=== PATIENT | female | born 1960 | race Caucasian/White ===

== ENCOUNTER 2021-05-24 04:47 | Emergency (ER) | payer SELFPAY ==
--- NOTE | ~2021-05-24 | XR_ITS ---
EXAMINATION: XR chest 1V portable DATE: 05/24/2021 06:49 INDICATION: Cough. Shortness of breath. TECHNIQUE: A single frontal view of the chest was obtained. COMPARISON: None. FINDINGS: Sensitivity is decreased by obesity. There is mild atelectasis in right lower lung zone. No pleural effusion or pneumothorax. The heart size is normal. IMPRESSION: 1. Mild atelectasis in right lower lung zone. Reviewed, dictated and finalized at location A.
--- NOTE | ~2021-05-24 | CT_ITS ---
EXAMINATION: CT soft tissue neck w con DATE: 05/24/2021 07:13 INDICATION: Throat obstruction. TECHNIQUE: Computed tomography (CT) of the neck was performed with 75 mL Omnipaque-350 intravenous co ntrast. Automated exposure control and iterative reconstruction technique were employed. The dose-renato gth product was 869.82 mGy-cm. COMPARISON: None FINDINGS: There are nodules in the thyroid measuring up to 11 mm, likely not clinically significant. There are no pathologically enlarged lymph nodes. There is plaque in the proximal internal carotid ar teries with 0% stenosis on the right and 50% stenosis on the left relative to normal distal artery ramesh men diameter. There is severe cervical spondylosis. IMPRESSION: 1. No etiology for the patient's symptoms. Reviewed, dictated and finalized at location A.
[2021-05-24 04:57] VITALS: BP 164/99; PULSE 80; RESP 18; TEMP 36.6; O2SAT 98
--- NOTE | 2021-05-24 04:59 | PC.NURSE ---
pt repeatedly refusing to wear her mask. pt educated on why it's important to protect staff, other patients, and even herself and how wearing a mask is necessary. pt then puts mask over her nose but not her mouth. pt then educated on how to accurately place her mask on her face. pt then states you're trying to kill me and then laughs. she then states she needs oxygen right now. this rn explains to pt that her oxygen saturation is 98% on RA and that she isnt in any distress at this time but that we will continue to monitor her saturations and will apply oxygen if her status changes.
--- NOTE | 2021-05-24 05:05 | PC.NURSE ---
pt seen without her mask on and instructed to place her mask pack on her face appropriately. pt rolled her eyes at this rn. pt then states i need oxygen. this rn again educated pt on her WNL oxygen saturation and also educated pt on the dangers of getting too muh ch oxygen when it's not needed. pt again rolled her eyes at this RN. will continue to monitor pt's oxygen saturation to make sure its WNL.
--- NOTE | 2021-05-24 05:13 | ECG_ITS ---
Measurements Intervals [place] Rate: 73 P: 53 [place]: 149 QRS: 10 QRSD: 94 T: 17 QT: 412 QTc: 456 Interpretive Statements SINUS RHYTHM DELAYED PRECORDIAL R/S TRANSITION BASELINE ARTIFACT- I, II, III, AVR, AVL, AVF, V1-V6 BORDERLINE ECG Electronically Signed On 05-24-2021 6:40:55 CDT by Jett Robert D.O.
[2021-05-24 06:02] LABS: Basophils Percent Auto 0.3 % (0.2-1.2); Eosinophils Absolute Auto 0.1 K/mm3 (0-0.3); Eosinophils Percent Auto 1.3 % (0-4.4); Hemoglobin 14.3 g/dL (12.0-15.0); Immature Granulocyte Absolute 0.01 K/mm3 (0.00-0.031); Immature Granulocyte Percent A 0.2 % (0-0.5); Lymphocytes Absolute Auto 0.99 K/mm3 (0.9-3.2); Lymphocytes Percent Auto 16.3 % (18.3-44.2); Mean Corpuscular HGB Conc 30.4 g/dl (32-36); Mean Corpuscular Volume 88.7 fl (80-100); Mean Platelet Volume 10.7 fl (7.4-10.4); Monocytes Absolute Auto 0.6 K/mm3 (0.1-0.6); Monocytes Percent Auto 9.9 % (2.6-8.5); Neutrophils Absolute Auto 4.4 K/mm3 (1.3-6.7); Platelet Count Result 215 k/mm3 (150-375); Red Cell Distribution Width 17.2 % (11.5-14.5); White Blood Count 6.1 K/mm3 (4.5-10.0)
[2021-05-24 06:11] LABS: Anion Gap 8 mmol/L (8-16); Blood Urea Nitrogen 10 mg/dL (7-17); Calcium 9.3 mg/dL (8.4-10.2); Carbon Dioxide 27 mmol/L (22-30); Chloride 103 mmol/L (98-107); Estimated CRCL calculation 123 ml/min; Estimated Glomerular Filt Rate > 60; Glucose 98 mg/dL (65-105); Potassium 3.5 mmol/L (3.4-5.0); Sodium 138 mmol/L (137-145)
--- NOTE | 2021-05-24 06:19 | PC.NURSE ---
pt arguing with nurse that she needs oxygen right now. pt is currently 99% on room air. Pt states I have something in my throat, my oxygen is dropping to 78% and so i am in distress. I demand oxygen. I cant do my yoga poses and if no one is going to see me i am going to leave. I am in distress. nurse attempted to calm patient and explain that she was 98-99% on room air and is not currently showing any signs of distress at this time. Pt is not pursed lip breathing, tri podding, or showing any signs of distress. ERP notified of patients demands.
[2021-05-24 06:50] VITALS: BP 162/67; PULSE 67; RESP 14; O2SAT 93
--- NOTE | 2021-05-24 07:55 | ED.URI ---
HPI - URI/Sore Throat General Chief Complaint: Shortness of Breath/Dyspnea Stated Complaint: sob, cough Time Seen by Provider: 05/24/21 06:20 Source: patient Mode of arrival: ambulatory Limitations: no limitations History of Present Illness HPI Narrative: This is 60 year old female with history of lymphedema who presents for evaluation shortness of breath. PAtient reports longstanding sinus disease. She reports she is having sinus drainage and postnasal drip. Over the past week she has felt like something is stick in her throat. She reports she has to tilt her head back to feel like she is getting oxygen in . She reports she needs to cough but she is unable to get anything out. She has not tried taking any sinus medication or OTC medication. She denies fever, chills. She is able eat and drink. She states sometimes she feels like she gets choked. Related Data Allergies Allergy/AdvReac Type Severity Reaction Status Date / Time amoxicillin [From Augmentin] AdvReac Hives Verified 05/24/21 05:44 clavulanic acid AdvReac Hives Verified 05/24/21 05:44 [From Augmentin] Review of Systems Review of Systems: All systems reviewed & are unremarkable except as noted in HPI and below PMFSH Past Medical History Medical History (Updated 05/24/21 @ 08:19 by Merry Conte MD) Lymphedema Surgical History Surgical History (Updated 05/24/21 @ 08:09 by Merry Conte MD) No pertinent past surgical history Social History Social History (Updated 05/24/21 @ 08:17 by Merry Conte MD) Smoking status: Former smoker Exam Const: General: no acute distress and alert Nutritional Appearance: obese Orientation/consciousness: patient oriented x3 HENMT: Head: normocephalic and atraumatic Ears: TM's normal bilaterally General nose exam: Normal external nose present, Normal nares present and No nasal polyps present Face and sinus: face symmetric Mouth: Yes Normal oral and palatal mucosa present, Yes lip normal, Yes tongue normal, Yes oropharynx normal, Yes moist mucous membranes and Yes other (no stridor) Throat: posterior oropharynx normal, tonsils normal and uvula midline Eyes: Pupils: Equal, round and reactive pupils present EOM: EOMs intact bilaterally Resp: Effort & Inspection: normal respiratory effort and no retractions Auscultation: clear to auscultation bilaterally Cardio: Rate: regular rate Rhythm: regular rhythm Heart sounds: no murmurs GI: GI Palp: Yes Soft to palpation, No Tenderness to palpation present (GI) and No Guarding due to palpation present (GI) Auscultation: normal bowel sounds Skin: General skin exam: normal color Rashes: no rashes Neuro: General: patient oriented x3, moves all extremities and CN's II-XI intact bilaterally Psych: Mental Status: mental status grossly normal Affect: normal affect Course Reevaluation(s) Reevaluation #1: Patient is resting in bed comfortably . No distress. I discussed CT reports showing thyroid nodule and 50% stenosis. She understands she will need to get established with primary care physician. She will be treated for sinus disease as cause of symptoms Date: 05/24/21 Time: 08:15 Vital Signs Vital signs: Vital Signs Temperature 97.8 F 05/24/21 04:57 Pulse Rate 80 05/24/21 04:57 Respiratory Rate 18 05/24/21 04:57 Blood Pressure 164/99 H 05/24/21 04:57 Pulse Oximetry 98 05/24/21 04:57 Temperature 97.8 F 05/24/21 04:57 Pulse Rate 67 05/24/21 06:50 Respiratory Rate 14 05/24/21 06:50 Blood Pressure 162/67 H 05/24/21 06:50 Pulse Oximetry 93 05/24/21 06:50 MDM - URI/Sore Throat Lab Data Attestation: I reviewed the patient's lab results. Result diagrams: 05/24/21 05:55 05/24/21 05:55 Labs: Lab Results 05/24/21 05/24/21 Range/Units 05:55 05:55 WBC 6.1 (4.5-10.0) K/mm3 RBC 5.30 (4.2-5.4) M/mm3 Hgb 14.3 (12.0-15.0) g/dL Hct 47.0 (37.0-47.0) % MCV 88.7
[2021-05-24 08:36] VITALS: BP 125/58; PULSE 61; RESP 16; O2SAT 97
== END 2021-05-24 08:37 | disposition home or self-care (01) ==
PROVIDERS: Emergency Provider General Practice
DX: J32.9 Chronic sinusitis, unspecified (principal); I89.0 Lymphedema, not elsewhere classified; Z87.891 Personal history of nicotine dependence; R91.8 Other nonspecific abnormal finding of lung field; R94.31 Abnormal electrocardiogram [ECG] [EKG]
CPT/HCPCS: 36415; 70491; 71045; 80048; 85025; 93005; 99284; Q9967

== ENCOUNTER 2021-07-23 01:21 | Emergency (ER) | payer MEDICAID, SELFPAY ==
--- NOTE | ~2021-07-23 | XR_ITS ---
EXAMINATION: XR chest 1V portable EXAM DATE: 07/23/2021 03:33 INDICATION: Weakness. TECHNIQUE: Portable AP frontal chest x-ray was obtained. Comparison is made to prior examination from 05/24/2021. FINDINGS: There is cardiomegaly unchanged. No confluent consolidation, pneumothorax or pleural effusi on suspected. There are bony degenerative changes. IMPRESSION: Reviewed, dictated and finalized at location A. IMPRESSION:
[2021-07-23 01:16] VITALS: BP 184/78; PULSE 64; RESP 18; TEMP 36.3; O2SAT 98
--- NOTE | 2021-07-23 02:56 | ECG_ITS ---
Measurements Intervals [place] Rate: 56 P: 44 [place]: 162 QRS: 0 QRSD: 102 T: 18 QT: 458 QTc: 443 Interpretive Statements SINUS BRADYCARDIA BASELINE ARTIFACT- I, II, III, AVR, AVL, AVF, V1, V3-V6 BORDERLINE ECG Electronically Signed On 07-23-2021 7:49:04 CDT by Jett Robert D.O.
[2021-07-23 03:20] LABS: Basophils Percent Auto 0.5 % (0.2-1.2); Eosinophils Absolute Auto 0.1 K/mm3 (0-0.3); Eosinophils Percent Auto 1.5 % (0-4.4); Hematocrit 39.7 % (37.0-47.0); Hemoglobin 12.8 g/dL (12.0-15.0); Immature Granulocyte Absolute 0.03 K/mm3 (0.00-0.031); Immature Granulocyte Percent A 0.4 % (0-0.5); Lymphocytes Absolute Auto 1.19 K/mm3 (0.9-3.2); Lymphocytes Percent Auto 15.2 % (18.3-44.2); Mean Corpuscular HGB Conc 32.2 g/dl (32-36); Mean Corpuscular Hemoglobin 27.9 pg (26-34); Mean Corpuscular Volume 86.5 fl (80-100); Mean Platelet Volume 10.6 fl (7.4-10.4); Monocytes Absolute Auto 0.7 K/mm3 (0.1-0.6); Monocytes Percent Auto 9.3 % (2.6-8.5); Neutrophils Absolute Auto 5.7 K/mm3 (1.3-6.7); Neutrophils Percent Auto 73.1 % (45.5-73.1); Platelet Count Result 243 k/mm3 (150-375); Red Blood Count 4.59 M/mm3 (4.2-5.4); Red Cell Distribution Width 15.4 % (11.5-14.5); White Blood Count 7.8 K/mm3 (4.5-10.0)
[2021-07-23 03:32] LABS: Alanine Aminotransferase 9 U/L (4-35); Albumin Level 3.7 g/dL (3.5-5.1); Alkaline Phosphatase 89 U/L (38-126); Anion Gap 9 mmol/L (8-16); Aspartate Amino Transferase 19 U/L (14-36); Bilirubin,Total 0.8 mg/dL (0.2-1.3); Blood Urea Nitrogen 6 mg/dL (7-17); Calcium 9.4 mg/dL (8.4-10.2); Carbon Dioxide 26 mmol/L (22-30); Chloride 104 mmol/L (98-107); Estimated CRCL calculation 128 ml/min; Estimated Glomerular Filt Rate > 60; Glucose 112 mg/dL (65-110); Potassium 3.7 mmol/L (3.4-5.0); Sodium 139 mmol/L (137-145)
[2021-07-23 03:53] VITALS: BP 141/75; PULSE 54; O2SAT 97
[2021-07-23 03:58] LABS: Troponin I < 0.012 ng/mL (0.000-0.034)
--- NOTE | 2021-07-23 04:02 | ED.GENADULT ---
HPI - General Adult General Chief complaint: Anxiety Stated complaint: not feeling well Time Seen by Provider: 07/23/21 02:20 History of Present Illness HPI narrative: Patient is a 60-year-old female presents the emergency department feeling well. Patient reports that she been seen at multiple emergency departments over the last several weeks states she also has had some auditory hallucinations and has been somewhat depressed but denies suicidal or homicidal ideation. Patient reports that she had no fever no chills no cough no runny nose no sore throat reports she has had a change in her smell taste and smell approximately 3 weeks ago patient states that she has no abdominal pain or diarrhea. Related Data Allergies Allergy/AdvReac Type Severity Reaction Status Date / Time amoxicillin [From Augmentin] AdvReac Hives Verified 07/23/21 01:24 clavulanic acid AdvReac Hives Verified 07/23/21 01:24 [From Augmentin] Review of Systems Review of Systems: A 10 system review of systems was completed on the patient and is negative except for what is stated in the HPI. Nursing and ancillary documentation was reviewed. PMFSH Past Medical History Medical History Lymphedema Surgical History Surgical History No pertinent past surgical history Social History Social History Smoking status: Former smoker Exam Narrative: GENERAL: Well-appearing, well-nourished, and in no acute distress. HEAD: Normocephalic, atraumatic. EYES: PERRLA and EOMI. ENT: Nares clear, no rhinorrhea or epistaxis. Mucous membranes moist. NECK: Supple. CHEST: Clear to auscultation. No respiratory distress. HEART: Regular rate and rhythm. No murmur heard. Normal peripheral pulses. ABDOMEN: Soft, nontender, nondistended, normal active bowel sounds. EXTREMITIES: Normal range of motion. No edema. SKIN: Warm, dry, no rash. NEURO: No focal deficits. Alert and oriented x3. PSYCH: Normal mood and affect. Course Vital Signs Vital signs: Vital Signs Temperature 36.3 C L 07/23/21 01:16 Pulse Rate 64 07/23/21 01:16 Respiratory Rate 18 07/23/21 01:16 Blood Pressure 184/78 H 07/23/21 01:16 Pulse Oximetry 98 07/23/21 01:16 Temperature 36.3 C L 07/23/21 01:16 Pulse Rate 54 L 07/23/21 03:53 Respiratory Rate 18 07/23/21 01:16 Blood Pressure 141/75 H 07/23/21 03:53 Pulse Oximetry 97 07/23/21 03:53 Medical Decision Making Vital Signs Vital Signs: Vital Signs Temperature 36.3 C L 07/23/21 01:16 Pulse Rate 64 07/23/21 01:16 Respiratory Rate 18 07/23/21 01:16 Blood Pressure 184/78 H 07/23/21 01:16 Pulse Oximetry 98 07/23/21 01:16 Temperature 36.3 C L 07/23/21 01:16 Pulse Rate 54 L 07/23/21 03:53 Respiratory Rate 18 07/23/21 01:16 Blood Pressure 141/75 H 07/23/21 03:53 Pulse Oximetry 97 07/23/21 03:53 Lab Data Result diagrams: 07/23/21 03:11 07/23/21 03:11 Labs: Lab Results 07/23/21 07/23/21 07/23/21 Range/Units 03:11 03:11 03:11 WBC 7.8 (4.5-10.0) K/mm3 RBC 4.59 (4.2-5.4) M/mm3 Hgb 12.8 (12.0-15.0) g/dL Hct 39.7 (37.0-47.0) % MCV 86.5 (80-100) fl MCH 27.9 (26-34) pg MCHC 32.2 (32-36) g/dl RDW 15.4 H (11.5-14.5) % Plt Count 243 (150-375) k/mm3 MPV 10.6 H (7.4-10.4) fl Immature Gran % (Auto) 0.4 (0-0.5) % Neut % (Auto) 73.1 (45.5-73.1) % Lymph % (Auto) 15.2 L (18.3-44.2) % [place] % (Auto) 9.3 H (2.6-8.5) % Eos % (Auto) 1.5 (0-4.4) % Baso % (Auto) 0.5 (0.2-1.2) % Lymph # (Auto) 1.19 (0.9-3.2) K/mm3 [place] # (Auto) 0.7 H (0.1-0.6) K/mm3 Eos # (Auto) 0.1 (0-0.3) K/mm3 Baso # (Auto) 0.0 (0.0-0.1) K/mm3 Abs Immat Gran (auto) 0.03 (0.00-0.031) K/mm3 Absolute Neuts (auto)
[2021-07-23 05:32] VITALS: BP 187/79; PULSE 64; RESP 18; TEMP 36.6; O2SAT 99
== END 2021-07-23 05:35 | disposition home or self-care (01) ==
PROVIDERS: Emergency Provider Emergency Medicine; PCP Internal Medicine
DX: R53.1 Weakness (principal); Z87.891 Personal history of nicotine dependence
CPT/HCPCS: 36415; 71045; 80053; 84484; 85025; 93005; 99283